=== PATIENT | male | born 1950 | race Hispanic/Latino ===

== ENCOUNTER 2017-06-08 13:29 | Outpatient (CLI) | payer BC ==
--- NOTE | 2017-06-08 15:31 | XRay Report ---
XRAY RIGHT KNEE 4 THREE VIEWS: 06/08/17 CLINICAL: Right knee pain. FINDINGS: Osteoarthritis of the lateral joint with near-complete loss of the joint space and moderate size osteophytes. Slight widening of the medial joint space and a varus deformity. No fracture or dislocation. Patellofemoral osteophytes.Possible loose body in the anterior aspect of the joint space on the lateral view and a possible small knee joint effusion.Normal soft tissues. IMPRESSION: Osteoarthritis with greater involvement of the lateral joint. Possible loose body in the joint.
== END 2017-06-08 13:30 | disposition home or self-care (01) ==
LOC: SPVIMAG 13:29
PROVIDERS: ATTEND Orthopaedic Surgery
DX: M17.11 Unilateral primary osteoarthritis, right knee (principal)

== ENCOUNTER 2018-06-08 08:15 | Inpatient (IN) | payer BC, MEDICARE ==
[2018-05-31 11:08] LABS: Basophils # (Auto) 0.1 K/mm3 (0.0-0.1); Basophils % (Auto) 1.1 % (0.0-1.8); Eosinophils # (Auto) 0.3 K/mm3 (0.0-0.4); Hematocrit 35.6 % (35.5-45.6); Hemoglobin 12.5 gm/dl (11.8-15.2); Lymphocytes # (Auto) 1.2 K/mm3 (1.2-5.4); Lymphocytes % (Auto) 27.2 % (13.4-35.0); Mean Corpuscular HGB Conc 35 % (32-34); Mean Corpuscular Volume 92 fl (84-94); Monocytes # (Auto) 0.5 K/mm3 (0.0-0.8); Monocytes % (Auto) 10.2 % (0.0-7.3); Platelet Count 199 K/mm3 (140-440); Red Blood Count 3.85 M/mm3 (3.65-5.03); Red Cell Distribution Width 13.8 % (13.2-15.2)
[2018-05-31 11:17] LABS: INR 1.03 (0.87-1.13)
[2018-05-31 11:18] LABS: Partial Thromboplastin Time 30.9 Sec. (24.2-36.6)
[2018-05-31 11:27] LABS: Alanine Aminotransferase 12 units/L (7-56); BUN/Creatinine Ratio 13; Blood Urea Nitrogen 9 mg/dL (9-20); Hemolysis Index 22
--- NOTE | 2018-05-31 15:56 | Anesthesia Consultation ---
Anesthesia Consult and Med Hx Date of service: 05/31/18 - Airway Anesthetic Teeth Evaluation: Good ROM Head & Neck: Adequate Mental/Hyoid Distance: Adequate Mallampati Class: Class II Intubation Access Assessment: Probably Good - Pulmonary Exam CTA: Yes - Cardiac Exam Cardiac Exam: RRR - Pre-Operative Health Status ASA Pre-Surgery Classification: ASA3 Proposed Anesthetic Plan: General, Epidural, Spinal - Pulmonary Hx Smoking: Yes (STOPPED 1978 , 30pk yr hx) Hx Asthma: No Hx Respiratory Symptoms: No COPD: No Hx Sleep Apnea: Yes (noncompliant with CPAP) - Cardiovascular System Hx Hypertension: No Hx Heart Attack/AMI: No Hx Percutaneous Transluminal Coronary Angioplasty (PTCA): No Hx Cardia Arrhythmia: No - Central Nervous System Hx Seizures: No CVA: No - Gastrointestinal Hx Gastroesophageal Reflux Disease: No - Endocrine Hx Renal Disease: No Hx Liver Disease: No Hx Insulin Dependent Diabetes: No Hx Non-Insulin Dependent Diabetes: No Hx Thyroid Disease: No - Other Systems Hx Alcohol Use: Yes (previously 3-4drinks/day; last drink 4 months ago) Hx Substance Use: Yes (occasional THC) Hx Cancer: Yes (hx skin ca s/p resection) Hx Obesity: No - Additional Comments Anesthesia Medical History Comments: No hx anesthetic complications. No hx anticoagulant use, coagulopathy, or spine surgery. Discusssed R/B/A to GA and neuraxial anesthetic. Patient is ammenable to either.
[~2018-06-08 08:15] MED LIST: NEURONTIN PO NR; SUBLIMAZE IV PRN; VERSED IV NR
--- NOTE | 2018-06-08 11:18 | Anesthesia Day of Surgery ---
Anesthesia Day of Surgery - Day of Surgery Patient Examined: Yes Patient H&P Reviewed: Yes Patient is NPO: Yes
[2018-06-08] MEDS ORDERED: ANCEF/STERILE WATER 2 GM/20 ML IV NR (13:00)
[2018-06-08] MEDS: LACTATED RINGERS 1,000 ML IV SCH (13:15)
[2018-06-08] MEDS ORDERED: SUBLIMAZE ONE (13:40)
[2018-06-08] MEDS ORDERED: DIPRIVAN 10 MG/ML IV ONE ×2 (13:41→15:49)
[2018-06-08] MEDS ORDERED: KETALAR ONE (15:24)
[2018-06-08] MEDS ORDERED: MARCAINE 0.5% INFILTRATI ONE ×2 (15:29→17:45)
[2018-06-08] MEDS ORDERED: TORADOL ONE (15:29)
[2018-06-08] MEDS ORDERED: MORPHINE ONE (15:29)
[2018-06-08] MEDS ORDERED: NACL 0.9% 250ML 250 ML ONE (15:30)
[2018-06-08] MEDS ORDERED: TRANEXAMIC ACID ONE (15:56)
[2018-06-08] MEDS ORDERED: MORPHINE IV PRN (17:36)
--- NOTE | 2018-06-08 17:42 | Procedure Note ---
Date of procedure: 06/08/18 Pre-op diagnosis: Severe osteoarthritis right knee Post-op diagnosis: same Procedure: Right total knee replacement Procedure The patient was brought to the OR after being given a possible nerve block and preoperative holding he was placed on the OR table supine position following induction elevation of anesthesia the patient is right lower extremity was prepped and draped in the usual sterile manner. A timeout procedure was done to identify the patient in the correct operative site. With the knee flexed at 90 for a couple of minutes a midline incision was made over the patella was taken down distally towards the tibial tubercle next the medial retinaculum was incised and the patella was inverted examination of the patient's knee joint revealed typical osteoarthritic changes with large bone spurs noted primarily in the lateral compartment both the femoral and tibial's articular surfaces exhibited bare bone and large peripheral osteophytes next a large drill bit was used to enter the medullary canal this was followed by placement of the distal femoral cutting Ilia the distal femur was resected approximately 8-9 mm of bone was removed at this time. Attention was turned to the patient's proximal tibia using a external alignme guide the bone was cut using the medial surface as the low point of care was taken to protect the medial collateral ligaments the tibial articular surface was 7-sized A3 a #5 tibial based ray was selected this was followed by placement of the fixation hole or keel into the proximal tibial artery medullary canal. Attention was turned to the distal femur and using a 4 and 1 cutting block a 6 component was selected AP anterior and posterior as well as Soares cuts were made a 5 tibial ostomy femoral component was placed and the knee was then taken to a range of motion she appeared to have stability in both the flexion and extension FOLLOWING this the trial components were removed the knee was then copiously irrigated any remaining soft tissue and bony debris were removed at this time next the cement was next and following this the tibial components were inserted beginning with the based ray followed by the polyethylene insert The femoral component was added the excess were removed the knee was held in extension until the cement hardened following hardening of cement the knee was then brought back into of flexion any remaining soft tissue and bony debris were removed at this time. The wound again was irrigated and was closed in a standard routine fashion. Dressings were applied the patient tolerated the procedure there were no complications she was then taken to post anesthesia recovery Anesthesia: GETA Surgeon: LAINEY MILLER Returning Officer: CALIN ORDAZ Estimated blood loss: 50-100ml Pathology: none Condition: stable Disposition: PACU
[2018-06-08] MEDS ORDERED: TORADOL IV ONE (17:45)
[2018-06-08] MEDS ORDERED: NACL 0.9% 250ML IV ONE (17:45)
[2018-06-08] MEDS ORDERED: MORPHINE IM ONE (17:45)
[2018-06-08] MEDS ORDERED: SODIUM CHLORIDE FLUSH SYRINGE 10 ML IV NR (18:00)
[2018-06-08] MEDS: DILAUDID IV PRN ×3 (18:15→21:26)
[2018-06-09] MEDS: ANCEF/NS 1 GM/50 ML 1 GM/50 ML BAG IV SCH ×2 (02:03→08:16)
[2018-06-09] MEDS: LACTATED RINGERS 1,000 ML IV SCH (05:09)
[2018-06-09] MEDS ORDERED: LOVENOX SUB-Q SCH (10:00)
[2018-06-09] MEDS: MORPHINE IV PRN ×2 (13:47→22:16)
--- NOTE | 2018-06-09 15:00 | Progress Note ---
Assessment and Plan S/P right TKR doing well will dc to home soon Subjective Date of service: 06/09/18 Interval history: no c/o's noted, states started PT today, walked in hallway earlier... Objective Vital signs: Vital Signs - 12hr 06/09/18 06/09/18 06/09/18 04:43 07:17 08:00 Temperature 98.0 F 98.4 F 98.4 F Pulse Rate 71 70 Respiratory 18 18 18 Rate Blood Pressure 119/78 123/76 Blood Pressure 123/76 [Left] O2 Sat by Pulse 99 98 Oximetry 06/09/18 06/09/18 08:10 11:00 Temperature 97.6 F Pulse Rate 75 Respiratory 16 Rate Blood Pressure Blood Pressure 108/63 [Left] O2 Sat by Pulse 98 99 Oximetry Narrative Exam: Post op dressing intact, neg Elaina's sign, good capillary refill... - Labs CBC & BMP: 05/31/18 10:30 05/31/18 10:30
--- NOTE | 2018-06-09 15:05 | Discharge Summary ---
Providers - Providers Date of Admission: 06/08/18 08:25 Date of discharge: 06/10/18 Attending physician: LAINEY MILLER MD 06/08/18 17:36 Consult to Case Management [CONS] Routine Services Needed at Discharge: Physical Therapy Quality Control Associate 06/08/18 17:39 Physical Therapy Evaluation and Treat [CONS] Routine Comment: Reason For Exam: post op evaluation Weight bearing status?: Full wt bearing Assistive devices?: Yes If so list: Walker 06/09/18 14:49 Consult to Physician [CONS] Routine Comment: Consulting Provider: CYNTHIA GARZA Physician Instructions: Reason For Exam: medical management Primary care physician: VENKATA MALONEY Hospitalization Condition: Stable Procedures: Right Total knee Replacement Hospital course: 67 y/o male with severe osteoarthritis right knee, admitted and taken to the OR where Right TKR done without complications. Post op seen by PT where given instructions on range of motion and strengthening exercise.. Disposition: [id number] HOME UNDER HOME [facility] - Discharge Diagnoses (1) Primary osteoarthritis of right knee Status: Acute Core Measure Documentation - Palliative Care Palliative Care/ Comfort Measures: Not Applicable - Core Measures Any of the following diagnoses?: none - VTE Discharge Requirements Deep Vein Thrombosis/Pulmonary Embolism Present on Admission: No Has pt received <5 days of overlap therapy or INR<2.0: Yes Anticoagulant overlap therapy prescribed at discharge: Yes Contraindication No Overlap Therapy order at DC: Medical Contraindication - Acute [place] Discharge Requirements Aspirin at discharge: No Reason for no aspirin on DC: Medical contraindication - Heart Failure Discharge Requirements LEMUEL/ARB for LVSD if EF <40%: No Reason for no LEMUEL/ARB: Medical contraindication - Stroke Discharge Requirements Statin for LDL = or >70 mg/dl on DC: No Reason for no statin on DC: Medical Contraindication Exam - Physical Exam Narrative exam: Post op dressing intact, neg Elaina's sign, good capillary refill... - Constitutional Vitals: Temp Pulse Resp BP Pulse Ox 97.6 F 75 16 108/63 99 06/09/18 11:00 06/09/18 11:00 06/09/18 11:00 06/09/18 11:00 06/09/18 11:00 General appearance: Present: no acute distress, well-nourished - EENT Eyes: Present: PERRL ENT: hearing intact, clear oral mucosa - Neck Neck: Present: supple, normal ROM - Respiratory Respiratory effort: normal Respiratory: bilateral: CTA - Cardiovascular Heart Sounds: Present: S1 & S2. Absent: rub, click - Extremities Extremities: pulses symmetrical, No edema Peripheral Pulses: within normal limits - Abdominal General gastrointestinal: Present: soft, non-tender, non-distended, normal bowel sounds Male genitourinary: Present: normal - Integumentary Integumentary: Present: clear, warm, dry - Musculoskeletal Musculoskeletal: gait normal, strength equal bilaterally - Psychiatric Psychiatric: appropriate mood/affect, intact judgment & insight - Neurologic Neurologic: CNII-XII intact, moves all extremities Plan Activity: advance as tolerated Weight Bearing Status: Weight Bear as Tolerated Diet: regular Wound: keep clean and dry Special Instructions: physical therapy Durable Medical Equipment Needed Upon Discharge: Walker-Standard, Bedside commode -elevated Follow up with: VENKATA MALONEY MD [Primary Care Provider] - 7 Days Prescriptions: Apixaban [Eliquis] 2.5 mg PO BID #42 tablet HYDROcodone/APAP 7.5-325 [[place] 7.5-325 mg TAB] 1 each PO Q6HR PRN #30 tablet PRN Reason: Pain
--- NOTE | 2018-06-09 20:08 | XRay Report ---
PROCEDURE: XR KNEE 1-2V RT TECHNIQUE: knee radiograph, HISTORY: postop evaluation COMPARISONS: None . FINDINGS: A total knee prosthesis is identified with satisfactory alignment soft tissue swelling and air is not ed anteriorly consistent with recent surgery. IMPRESSION: Total knee prosthesis with satisfactory alignment. This document is electronically signed by Victor Manuel Odom MD., June 09 2018 08:06:28 PM ET
[2018-06-10 07:35] VITALS: BP 140/88
== END 2018-06-10 10:35 | disposition home health service (06) | DRG 470 ==
LOC: 3A 08:25 → EDSTATUS 13:45 → 3B-SURG 18:57
PROVIDERS: ADMIT Orthopaedic Surgery; ATTEND Orthopaedic Surgery
PROC: 0SRC0J9 Replacement of Right Knee Joint with Synthetic Substitute, Cemented, Open Approach (ICD-10-PCS; principal; 2018-06-08)
DX: M17.11 Unilateral primary osteoarthritis, right knee (principal); G47.30 Sleep apnea, unspecified; F19.10 Other psychoactive substance abuse, uncomplicated; Z87.891 Personal history of nicotine dependence; Z72.89 Other problems related to lifestyle; Z85.828 Personal history of other malignant neoplasm of skin
CPT/HCPCS: 36415; 64450; 80053; 85025; 85610; 85730; 94760; G0378; C1776; J0690; J1170; J1650; J1885; J2250; J2270; J2704; J3010; J7050; J7120